=== PATIENT | male | born 1935 | race Caucasian/White ===

== ENCOUNTER 2018-12-08 23:07 | Emergency (ER) | payer MEDICAID, OTHER ==
[~2018-12-08] VITALS: Ht 170.2 cm; Wt 81.6 kg
[2018-12-08 23:07] VITALS: BP 126/68
[~2018-12-08 23:07] MED LIST: [UNRECOGNIZED DRUG - REMARK]
--- NOTE | 2018-12-08 23:08 | NUR ---
PT BIBA ALS FOR S/P MECHANICAL FALL AND ETOH. PT A&O X4. GCS 14. VSS. PERRL. PER ALS PT DRINKS 1 PINT OF ALCOHOL DAILY. PT WAS DRINKING FELL BACK AND HIT BACK OF HEAD ON CONCRETE AT 2200. LOC FOR ABOUT 15 SECONDS. PT GOT UP WENT UPSTAIRS TO BEDROOM AND FELL ON CARPET. PT DENIES ANY PAIN, PAIN LEVEL 0/10. [facility] 20 GAUGE ESTABLISHED ON SCENE TO LEFT FOREARM. ALLERGIES: NKA. MED HX: HTN AND HYPERLIPIDEMIA. HOB ELEVATED, BED IN LOWEST POSITION, BED RAILS UP X2. ERMD MADE AWARE OF PT STATUS. Addendum: 12/08/18 at 2337 by [email or web address] GCS 14 (E4, M6, V4). PERRL 3MM.
--- NOTE | 2018-12-08 23:11 | NUR ---
PT LEFT TO CT VIA R[facility]
--- NOTE | 2018-12-08 23:28 | NUR ---
PT RETURNED FROM CT
[2018-12-08] MEDS ORDERED: ATEN50TA8 PO (23:48)
[2018-12-08] MEDS ORDERED: DIT5 PO (23:48)
[2018-12-08] MEDS ORDERED: OMEP20TC12 PO (23:48)
[2018-12-08] MEDS ORDERED: CHLO25TA33 PO (23:48)
[2018-12-08] MEDS ORDERED: LISI-420 PO (23:48)
[2018-12-08] MEDS ORDERED: LOVA20TA PO (23:48)
[2018-12-08] MEDS ORDERED: MELO15TA11 PO (23:48)
[2018-12-08] MEDS ORDERED: TAMS0.4C96 PO (23:49)
--- NOTE | 2018-12-09 00:25 | NUR ---
PT RESTING IN BED WITH FAMILY AT BEDSIDE. VSS. WILL CONTINUE TO MONITOR.
--- NOTE | 2018-12-09 01:39 | NUR ---
Patient discharged with v/s stable. Pt encouraged to drink pleny of fluids. Written and verbal after care instructions given and explained. Patient verbalized understanding. Ambulatory with steady gait. All questions addressed prior to discharge. Advised to follow up with PMD in 4-5 days.
[2018-12-09 01:47] VITALS: BP 129/62
== END 2018-12-09 01:35 | disposition home or self-care (01) ==
LOC: MED 23:07
DX: S09.90XA Unspecified injury of head, initial encounter (principal); F10.129 Alcohol abuse with intoxication, unspecified; E11.9 Type 2 diabetes mellitus without complications; I10 Essential (primary) hypertension; E78.5 Hyperlipidemia, unspecified; Z79.84 Long term (current) use of oral hypoglycemic drugs; Z79.899 Other long term (current) drug therapy; W19.XXXA Unspecified fall, initial encounter; Y93.89 Activity, other specified; Y92.89 Other specified places as the place of occurrence of the external cause; Y99.8 Other external cause status
CPT/HCPCS: 70450; 99284